=== PATIENT | female | born 2000 | race Hispanic/Latino ===

== ENCOUNTER 2024-03-02 03:36 | Emergency (ER) | payer SELFPAY ==
[~2024-03-02] VITALS: Ht 157.5 cm; Wt 70.3 kg
[~2024-03-02 03:36] MED LIST: OMEPRAZOLE40 MG PO; ULTRAM 50MG50 MG PO
[2024-03-02 03:37] VITALS: PULSE 83; RESP 17; TEMP 98.5
[2024-03-02] MEDS ORDERED: VENTOLIN HFA18 GM INH (04:01)
[2024-03-02] MEDS ORDERED: IPRAT-ALBUT 0.5-3 ML NEB (04:01)
[2024-03-02] MEDS ORDERED: DIPHENHYDRAMINE25 M2 PO (04:01)
[2024-03-02] MEDS ORDERED: PREDNISONE20 MG PO (04:01)
[2024-03-02] MEDS: PREDNISONE 20 MG TAB PO ONE (04:19)
[2024-03-02] MEDS: ALBUTEROL/IPRATROPIUM 3 ML NEB NEB ONE (04:19)
[2024-03-02 04:29] VITALS: BP 127/74; PULSE 78; RESP 17; TEMP 98.5; O2SAT 97
== END 2024-03-02 04:33 | disposition home or self-care (01) ==
LOC: FSED 03:44
DX: R06.02 Shortness of breath (principal); J06.9 Acute upper respiratory infection, unspecified; J45.909 Unspecified asthma, uncomplicated; R05.9 Cough, unspecified; R51.9 Headache, unspecified; K21.9 Gastro-esophageal reflux disease without esophagitis; Z11.52 Encounter for screening for COVID-19; Z98.84 Bariatric surgery status
CPT/HCPCS: 0223U; 87400; 99283; J7512